=== PATIENT | female | born 2000 | race Caucasian/White ===

== ENCOUNTER → 2023-12-20 | Emergency (ER) | payer OTHER, SELFPAY ==
[~2023-12-20] MED LIST: ALBUTEROL 2.5 MG/3 ML NEB SOL ONE; HYDROCODONE/CHLORPHEN 5 ML/OSYR ONE; IPRATROPIUM BROM 0.5MG/2.5ML ONE; predniSONE 20 MG TAB ONE
--- OUTSIDE RECORDS SUMMARY | 2023-12-20 21:17 | XMS REPORT | Continuity of Care Document ---
Author Name Unknown Address [address] [facility] [place] [address] [facility] Address [address] [facility] [address] [place] [address] Care Team Providers Care Process Safety Engineer Name Role Phone Chato Al Primary Care Physician [phone] [email or web address]_S Attending Clinician UnavailDARCY Lieberman Attending Clinician Unavail able Visit, Chana Nurse Attending Clinician Unava Darcy Eden Attending Clinician + Lucas Kohli Attending Clinician + [phone] LUCAS RODRIGUEZ Attending Clinician Unavailab le Doctor Unassigned, Lupton Attending Clinician U Emily Anderson Attending Clinician [phone] EMILY TURNER Attending Clinician Unavailnitza e Nurse, Juarez Villatoro Exp Cprit Obgyn Attending Clini marcella Unavailable David GARCIA, Shannan Attending Clinician [phone] Ivon Lilly MD Attending Clinician [phone] Jaun Bernal MD Attending Clinician [phone] Lab, Chana Attending Clinician Unavailable Ultrasound, Adc Mfm Attending Clinician UnavailYogesh Moffett MD Attending Clinician + [phone] Bradshaw PAC, Chi S Attending Clinician [phone] [facility]W Attending Clinician Unavailable [email or web address]_S Admitting Clinician UnavailShannan Leigh MD Admitting Clinician [phone] Payers Payer Name Policy Type Policy Number Effective Date Expirati on Date Source [facility] [id number] 2021 00:00:00 MEDICAID PENDING PENDING 2021 00:00:00 [employer] [place] - OUT OF STATE [id number] 2014 00:00:00 Problems Condition Name Condition Details Condition Category Status Onset Date Resolution Date Last Treatment Date Treating Clinician Comments Source Encounter for surveillan ce of injectable contracept jack Encounter for surveillan ce of injectable contracept jack Disease Active 2020-11 00:00: 00 [facility] Elevated BP without diagnosis of hypertensi on Elevated BP without diagnosis of hypertensi on Disease Active 2020-11 00:00: 00 [facility] Rubella non-immune status, antepartum Rubella non-immune status, antepartum Disease Active 05-17 00:00: 00 Overview: Formattin g of this note might be different from the original. Address General acute hospital Susceptibl e to varicella (non-immun e), currently Susceptibl e to varicella (non-immun e), currently Disease Active 05-17 00:00: 00 Overview: Formattin g of this note might be different from the original. Address General acute hospital Marijuana use Marijuana use Disease Active 05-16 00:00: 00 Overview: Formattin g of this note might be different from the original. In [facility] Allergies, Adverse Reactions, Alerts Allergy Name Allergy Type Status Severity Reaction(s) Onset Date Inactive Date Treating Clinician Comments Source NO KNOWN ALLERGIE S Drug Class Active [facility] Social History Social Habit Start Date Stop Date Quantity Comments Source Exposure to SARS-CoV-2 (event) 2022-08-19 00:00:00 2022-08-29 13:06:00 Not sure [facility] Tobacco use and exposure 2022-08-29 00:00:00 2022-08-29 00:00:00 Smokeless tobacco non-user [facility] Alcohol intake 2022-08-29 00:00:00 2022-08-29 00:00:00 Ex-drinker (finding) [facility] Sex Assigned At 2002 00:00:00 2000 00:00:00 [facility] Smoking Status Start Date Stop Date Source Never smoked tobacco [facility] Medications Ordered Medication Name Filled Medication Name Start Date Stop Date Current Medication? Ordering Clinician Indication Dosage Frequency Signature (SIG) Comments Components Source medroxyPROG ESTERone (DEPO-PROVE RA) syringe 150 mg 08-29 19:00: 00 08-29 18:18 :00 No [id number] 150mg [facility] medroxyPROG ESTERone (DEPO-PROVE RA) syringe 150 mg 08-29 19:00: 00 08-29 18:18 :00 No [id number] 150mg 150 mg, Intramuscu lar, ONCE, 1 dose, On Thu08/29/22 at 1400, Routine [facility] medroxyPROG ESTERone (DEPO-PROVE RA) injection 150 mg 06-06 19:45: 00 06-06 18:34 :00 No [id number] 150mg [facility] medroxyPROG ESTERone (DEPO-PROVE RA) injection 150 mg 2021-06-06 19:45: 00 06-06 18:34 :00 No [id number] 150mg 150 mg, Intramuscu lar, ONCE, 1 dose, On Thu06/06/22 at 1445, Routine [facility] medroxyPROG ESTERone (DEPO-PROVE RA) injection 150 mg 2021-- 20:00: 00 03-14 18:48 :00 No [id number] 150mg [facility]iver [facility] medroxyPROG ESTERone (DEPO-PROVE RA) injection 150 mg 2021--15 20:00: 00 03-14 18:48 :00 No [id number] 150mg 150 mg, Intramuscu lar, ONCE, 1 dose, On Thu03/14/22 at 1500, Routine [facility] medroxyPROG ESTERone (DEPO-PROVE RA) injection 150 mg 12-20 19:21: 00 12-20 19:22 :00 No [id number] 150mg Univer [facility] medroxyPROG ESTERone (DEPO-PROVE RA) injection 150 mg 12-20 19:21: 00 12-20 19:22 :00 No [id number] 150mg 150 mg, Intramuscu lar, ONCE, 1 dose, On Thu12/20/21 at 1330, Routine [facility] [id number]-[id number] fum-folic () 27 mg iron- 1 mg Tab 2020-11 00:00: 00 Yes [id number] 1{tbl} Take 1 tablet by mouth daily. [facility] fej871-bkrn fum-folic () 27 mg iron- 1 mg Tab 2020-11 0 00:00: 00 Yes [id number] 1{tbl} Take 1 tablet by mouth daily. [facility] [id number]-epgg fum-folic () 27 mg iron- 1 mg Tab 2020-11 00:00: 00 Yes [id number] 1{tbl} Take 1 tablet by mouth daily. [facility] gfr145-zhbh fum-folic () 27 mg iron- 1 mg Tab 2020-11 0 00:00: 00 Yes [id number] 1{tbl} Take 1 tablet by mouth daily. [facility] wol589-ovva fum-folic () 27 mg iron- 1 mg Tab 2020-11 0 00:00: 00 Yes [id number] 1{tbl} Take 1 tablet by mouth daily. [facility] onw622-snuo fum-folic () 27 mg iron- 1 mg Tab 2020-11 0 00:00: 00 Yes [id number] 1{tbl} Take 1 tablet by mouth daily. [facility] docusate calcium 240 mg capsule 2020-11 00:00: 00 10-31 00:00 :00 No [id number] 240mg Take 1 capsule by mouth once daily as needed for Constipati on. [facility] ferrous sulfate 325 mg (65 mg iron) tablet 2020-11 00:00: 00 10-31 00:00 :00 No [id number] 325mg Take 1 tablet by mouth 2 (two) times daily. [facility] ibuprofen 600 mg tablet 2020-11 00:00: 00 10-31 00:00 :00 No [id number] 600mg Take 1 tablet by mouth every 6 (six) hours as needed (Pain). Take with food or milk. [facility] ibuprofen 600 mg tablet 2020-11 00:00: 00 10-31 00:00 :00 No [id number] 600mg Take 1 tablet by mouth every 6 (six) hours as needed (Pain). Take with food or milk. [facility] PNV 67-iron ps-folate no.1-dha (VITAFOL ULTRA) 29 mg iron- 1 mg-200 mg Cap 06-20 00:00: 00 10-31 00:00 :00 No [id number] 09 1{each} Take 1 Each by mouth daily. [facility] Vital Signs Vital Name Observation Time Observation Value Comments S mary Systolic blood pressure 2022-08-29 18:17:00 134 mm[Hg] [facility] Diastolic blood pressure 2022-08-29 18:17:00 78 mm[Hg] [facility] Heart rate 2022-08-29 18:17:00 81 /min [facility] Body temperature 2022-08-29 18:17:00 37 Mila [facility] Body weight 2022-08-29 18:17:00 78.926 kg [facility] Systolic blood pressure 2022-06-06 18:17:00 111 mm[Hg] [facility] Diastolic blood pressure 2022-06-06 18:17:00 76 mm[Hg] [facility] Heart rate 2022-06-06 18:17:00 79 /min Unive [facility] Body temperature 2022-06-06 18:16:00 36.44 Mila [facility] Respiratory rate 2022-06-06 18:16:00 16 /min [facility] Body height 2022-06-06 18:16:00 170.2 cm [facility] Body weight 2022-06-06 18:16:00 78.699 kg [facility] BMI 2022-06-06 18:16:00 27.17 kg/m2 [facility] Body mass index (BMI) [Percentile] Per age and sex 2022-06-06 18:16:00 87.70 % [facility] Systolic blood pressure 2022-03-14 18:16:00 140 mm[Hg] [facility] Diastolic blood pressure 2022-03-14 18:16:00 88 mm[Hg] [facility] Heart rate 2022-03-14 18:16:00 88 /min Unive [facility] Body temperature 2022-03-14 18:16:00 37.39 Mila [facility] Respiratory rate 2022-03-14 18:16:00 16 /min [facility] Body height 2022-03-14 18:16:00 170.2 cm [facility] Body weight 2022-03-14 18:16:00 78.654 kg [facility] BMI 2022-03-14 18:16:00 27.16 kg/m2 [facility] Body mass index (BMI) [Percentile] Per age and sex 2022-03-14 18:16:00 87.97 % [facility] Systolic blood pressure 2021-12-20 19:12:00 130 mm[Hg] [facility] Diastolic blood pressure 2021-12-20 19:12:00 80 mm[Hg] [facility] Heart rate 2021-12-20 19:12:00 81 /min Unive [facility] Body temperature 2021-12-20 19:12:00 36.28 Mila [facility] Respiratory rate 2021-12-20 19:10:00 18 /min [facility] Body weight 2021-12-20 19:10:00 78.699 kg [facility] Systolic blood pressure 2021-10-31 21:57:00 122 mm[Hg] [facility] Diastolic blood pressure 2021-10-31 21:57:00 92 mm[Hg] [facility] Heart rate 2021-10-31 21:56:00 93 /min [facility] Body temperature 2021-10-31 21:56:00 36.83 Mila [facility] Respiratory rate 2021-10-31 21:56:00 16 /min [facility] Body height 2021-10-31 21:56:00 170.2 cm [facility] Body weight 2021-10-31 21:56:00 74.889 kg [facility] BMI 2021-10-31 21:56:00 25.86 kg/m2 [facility] Body mass index (BMI) [Percentile] Per age and sex 2021-10-31 21:56:00 84.00 % [facility] Procedures Procedure Date / Time Performed Performing Clinicia n Source GARDASIL 9 (HPV 9V) VACCINE 2022-06-06 18:28:04 Lucas Rodriguez [facility] ASSIGNMENT OF BENEFITS 2022-06-06 18:00:17 Docto r Unassigned, Lupton [facility] Encounters Start Date/Time End Date/Time Encounter Type Admission Type Attending Clinicians Care Facility Care Department Encounter ID Source 2021-10-01 08:29:21 Outpatient [facility] [id number] [facility] 2023-09-26 00:00:00 2023-09-26 00:00:00 Outpatient GC_GCBZW_Ka diyala_S PRIV PRIV [id number] [facility] 2023-09-25 00:00:00 2023-09-25 00:00:00 Outpatient GC_GCBZW_Ka diyala_S PRIV PRIV [id number] [facility] 2022-11-21 13:00:2022-11-21 13:00:00 Outpatient DARCY QUILES [facility] [id number] [facility] 2022-08-29 13:00:00 2022-08-29 13:18:31 Nurse Visit Visit, Darcy Mendoza [facility] 1.840.114 350.1.13.10 4.2.7.2.686 [id number] [facility] 2022-08-29 13:00:00 2022-08-29 13:00:00 Outpatient DARCY QUILES [facility] [id number] [facility] 2022-06-06 13:00:00 2022-06-06 13:26:17 Nurse Visit Visit, BrendenLucas Zambrano [facility] 1.840.114 350.1.13.10 4.2.7.2.686 [id number] [facility] 2022-06-06 13:00:00 2022-06-06 13:00:00 Outpatient LUCAS MODI [facility] [id number] [facility] 2022-06-06 00:00:00 2022-06-06 00:00:00 Orders Only Doctor Unassigned, Lupton [facility] .840.114 350.1.13.10 4.2.7.2.686 [id number] [facility] 2022-03-14 13:00:00 2022-03-14 13:39:37 [facility] 1..840.114 350.1.13.10 4.2.7.2.686 [id number] 107 [id number] [facility] 2022-03-14 13:00:00 2022-03-14 13:00:00 Outpatient R LUCAS RODRIGUEZ [facility] [id number] [facility] 2021-12-20 13:00:00 2021-12-20 13:21:35 Nurse Visit Visit, Chana Dalton Lucas Rodriguez [facility] .840.114 350.1.13.10 4.2.7.2.686 [id number] [facility] 2021-12-20 13:00:00 2021-12-20 13:00:00 Outpatient R LUCAS RODRIGUEZ [facility] [id number] [facility] 2021-12-12 14:30:00 2021-12-12 14:30:00 Outpatient R [facility] [id number] [facility] 2021-12-12 14:30:00 2021-12-12 14:30:00 Outpatient R LUCAS RODRIGUEZ [facility] [id number] [facility] 2021-10-31 15:35:21 2021-10-31 16:23:36 Office Visit Emily Turner [facility] .840.114 350.1.13.10 4.2.7.2.686 [id number] [facility] 2021-10-31 15:30:00 2021-10-31 16:23:36 Outpatient R EMILY TURNER [facility] [id number] [facility] 2021-10-31 16:05:35 2021-10-31 16:06:00 Nurse Visit Nurse, Juarez Villatoro Exp Cprit Obgyn Emily Turner [facility] ..840.114 350.1.13.10 4.2.7.2.686 [id number] 107 [id number] [facility] 2021-10-10 12:47:20 2021-10-10 13:22:28 Routine Visit Emily Turner [facility] 1..114 350.1.13.10 4.2.7.2.686 [id number] [facility] 2021-10-10 12:45:00 2021-10-10 13:22:28 Outpatient R EMILY TURNER [facility] [id number] [facility] 2021-10-10 12:45:00 2021-10-10 13:22:28 Outpatient R EMILY TURNER [facility] [id number] [facility] 2021-09-19 08:13:00 2021-09-21 16:46:00 Hospital Encounter Shannan Hernandez [facility] 1..114 350.1.13.10 4.2.7.2.686 [id number] [facility] 2021-09-19 14:36:00 2021-09-19 23:22:00 Anesthesia Event Ivon Lilly Michael J [facility] 1..114 350.1.13.10 4.2.7.2.686 [id number] [facility] 2021-09-17 15:40:48 2021-09-17 16:03:53 Routine Visit Emily Turner [facility] 1.84.114 350.1.13.10 4.2.7.2.686 [id number] 107 [id number] [facility] 2021-09-17 15:45:00 2021-09-17 15:45:00 Outpatient R EMILY TURNER [facility] [id number] [facility] 2021-09-11 13:58:53 2021-09-11 14:30:09 Routine Visit Emily Turner [facility] 1.84.114 350.1.13.10 4.2.7.2.686 [id number] 107 [id number] [facility] 2021-09-11 14:15:00 2021-09-11 14:15:00 Outpatient R EMILY TURNER [facility] [id number] [facility] 2021-09-05 13:24:57 2021-09-05 13:55:40 Routine Visit Emily Turner [facility] .2.840.114 350.1.13.10 4.2.7.2.686 [id number] [facility] 2021-09-05 13:30:00 2021-09-05 13:30:00 Outpatient R EMILY TURNER [facility] [id number] [facility] 2021-08-29 13:20:54 2021-08-29 13:51:43 Routine Visit Emily Turner [facility] .2.840.114 350.1.13.10 4.2.7.2.686 [id number] [facility] 2021-08-29 13:30:00 2021-08-29 13:30:00 Outpatient R EMILY TURNER [facility] [id number] [facility] 2021-08-21 12:47:20 2021-08-21 15:07:20 Routine Visit Darcy Arnold [facility] .2.840.114 350.1.13.10 4.2.7.2.686 [id number] [facility] 2021-08-21 12:45:00 2021-08-21 12:45:00 Outpatient R DARCY ARNOLD [facility] [id number] [facility] 2021-08-07 12:58:15 2021-08-07 13:23:46 Routine Visit Darcy Arnold [facility] 1..840.114 350.1.13.10 4.2.7.2.686 [id number] [facility] 2021-08-07 13:00:00 2021-08-07 13:00:00 Outpatient R DARCY ARNOLD [facility] [id number] [facility] 2021-07-24 14:26:06 2021-07-24 14:41:06 Routine Visit EsdrasDarcy aquino Kristen [facility] 1..840.114 350.1.13.10 4.2.7.2.686 [id number] [facility] 2021-07-24 14:30:00 2021-07-24 14:30:00 Outpatient R DARCY ARNOLD [facility] [id number] [facility] 2021-07-16 12:46:03 2021-07-16 12:52:30 Singeing Torch Operator Visit Lab, Ang-Rmchp Darcy Arnold rKisten [facility] 1..840.114 350.1.13.10 4.2.7.2.686 [id number] [facility] 2021-07-16 12:45:00 2021-07-16 12:45:00 Outpatient R [facility] [id number] [facility] 2021-07-11 10:51:54 2021-07-11 11:36:54 Singeing Torch Operator Visit Ultrasound, Yogesh Patrick [facility] 1..840.114 350.1.13.10 4.2.7.2.686 [id number] [facility] 2021-07-11 11:00:00 2021-07-11 11:00:00 Outpatient P [facility] [id number] [facility] 2021-07-10 13:56:09 2021-07-10 15:27:15 Routine Visit Darcy Arnold [facility] 1.2840.114 350.1.13.10 4.2.7.2.686 [id number] [facility] 2021-07-10 14:00:00 2021-07-10 14:00:00 Outpatient R DARCY ARNOLD [facility] [id number] [facility] 2021-06-21 00:00:00 2021-06-21 00:00:00 Abstract Darcy Arnold [facility] 1.2840.114 350.1.13.10 4.2.7.2.686 [id number] [facility] 2021-06-20 13:54:40 2021-06-20 15:20:43 Singeing Torch Operator Visit Ultrasound, [facility] Yogesh Farmer [facility] 1.0.114 350.1.13.10 4.2.7.2.686 [id number] [facility] 2021-06-20 14:00:00 2021-06-20 14:00:00 Outpatient R [facility] [id number] [facility] 2021-06-20 00:00:00 2021-06-20 00:00:00 Telephone Darcy Arnold [facility] 1.20.114 350.1.13.10 4.2.7.2.686 [id number] 107 [id number] [facility] 2021-06-19 00:00:00 2021-06-19 00:00:00 Telephone Darcy Arnold [facility] 1.2840.114 350.1.13.10 4.2.7.2.686 [id number] [facility] 2021-06-14 00:00:00 2021-06-14 00:00:00 Telephone Darcy Arnold Kristen [facility] 1.2.840.114 350.1.13.10 4.2.7.2.686 [id number] [facility] 2021-06-14 00:00:00 2021-06-14 00:00:00 Telephone Darcy Arnold Kristen [facility] 1..840.114 350.1.13.10 4.2.7.2.686 [id number] [facility] 2021-06-12 13:12:41 2021-06-12 14:09:23 Routine Visit Darcy Arnold [facility] 1.840.114 350.1.13.10 4.2.7.2.686 [id number] [facility] 2021-06-12 13:00:00 2021-06-12 13:00:00 Outpatient R DARCY ARNOLD [facility] [id number] [facility] 2021-05-16 14:42:37 2021-05-16 15:50:31 Initial Visit Darcy Arnold [facility] 1..840.114 350.1.13.10 4.2.7.2.686 [id number] [facility] 2021-05-16 14:00:00 2021-05-16 14:00:00 Outpatient R DARCY ARNOLD [facility] [id number] [facility] 2021-05-16 00:00:00 2021-05-16 00:00:00 Orders Only Doctor Unassigned, Lupton [facility] 1..840.114 350.1.13.10 4.2.7.2.686 [id number] [facility] 2021-03-08 09:30:00 2021-03-08 09:30:00 Outpatient R [facility] [id number] [facility] 2020-02-14 18:19:04 2020-02-14 21:20:00 Emergency Chi Bradshaw S [facility] 1.2.840.114 350.1.13.10 4.2.7.2.686 [id number] [facility] 2020-02-14 18:19:04 2020-02-14 18:19:04 Emergency X [facility] ERT [id number] [facility]
--- NOTE | 2023-12-20 23:34 | ER ---
Nurse's Notes [facility] Name: Katia Shi Age: 23 yrs Sex: Female : 2000 Arrival Date: 12/20/2023 Time: 21:13 Bed 12 Private MD: Diagnosis: Acute bronchitis, unspecified Presentation: 12/20 21:39 Chief complaint: Patient states: Cough, congestion, chills, body aches and sore throat cm10 onset this morning. Pt reports not taking any medicine for symptoms. Coronavirus screen: Vaccine status: Patient reports being unvaccinated. Client denies travel out of the [place] in the last 14 days. Ebola Screen: Patient denies travel to an Ebola-affected area in the 21 days before illness onset. No symptoms or risks identified at this time. Initial Sepsis Screen: Does the patient meet any 2 criteria? HR > 90 bpm. No. Patient's initial sepsis screen is negative. Does the patient have a suspected source of infection? No. Patient's initial sepsis screen is negative. Risk Assessment: Do you want to hurt yourself or someone else? Patient reports no desire to harm self or others. Onset of symptoms was December 20, 2023. 21:39 Method Of Arrival: Ambulatory cm10 21:39 Acuity: JAMES 4 cm10 Triage Assessment: 22:26 General: Appears in no apparent distress. Behavior is calm, cooperative. Pain: Denies tl4 pain. EENT: No signs and/or symptoms were reported regarding the EENT system. Neuro: No deficits noted. Cardiovascular: No deficits noted. Denies chest pain, lightheadedness, palpitations. Respiratory: Reports cough that is Breath sounds with wheezes. GI: No signs and/or symptoms were reported involving the gastrointestinal system. : No signs and/or symptoms were reported regarding the genitourinary system. 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 - Social history:: Smoking status: Reported history of juuling and/or vaping. Screenin:29 [facility] ED Fall Risk Assessment (Adult) History of falling in the last 3 months, tl4 including since admission No falls in past 3 months (0 pts) Confusion or Disorientation No (0 pts) Intoxicated or Sedated No (0 pts) Impaired Gait No (0 pts) Mobility Assist Device Used No (0 pt) Altered Elimination No (0 pt) Score/Fall Risk Level 0 - 2 = Low Risk Oriented to surroundings, Maintained a safe environment, Educated pt \T\ family on fall prevention, incl call for assistance when getting out of bed, Assessed \T\ reinforced patient's understanding of fall precautions, Provided non-skid footwear. Abuse screen: Denies threats or abuse. Denies injuries from another. Nutritional screening: No deficits noted. Tuberculosis screening: No symptoms or risk factors identified. Assessment: 22:27 Reassessment: No changes from previously documented assessment. Patient and/or family tl4 updated on plan of care and expected duration. Pain level reassessed. Patient is alert, oriented x 3, equal unlabored respirations, skin warm/dry/pink. Patient states feeling better. Pain: Denies pain. Cardiovascular: Capillary refill < 3 seconds Patient's skin is warm and dry. Respiratory: Airway is patent Respiratory effort is even, unlabored, Respiratory pattern is regular, Breath sounds with wheezes bilaterally. Vital Signs: 21:39 BP 138 / 93; Pulse 102; Resp 18; Temp 98; Pulse Ox 96% on R/A; Weight 81.65 kg; Height cm10 5 ft. 6 in. ; Pain 5/10; 23:41 BP 119 / 82; Pulse 87; Resp 16; Temp 98.1(O); Pulse Ox 99% on R/A; tl4 21:39 Body Mass Index 29.05 (81.65 kg, 167.64 cm) cm10 21:39 Pain Scale: Adult cm10 ED Course: 21:19 Patient arrived in ED. gm2 21:21 Rochelle Luz FNP-C is [facility]. kb 21:21 Gabino Lozoya DO is Attending Physician. kb 21:41 Triage completed. cm10 21:41 Arm band placed on Patient placed in an exam room, on a stretcher. cm10 21:41 SARS-COV-2 RT PCR Sent. cm10 21:41 Flu Sent. cm10 22:29 Patient has correct armband on for positive identification. Bed in low position. Call tl4 light in reach. Side rails up X 1. Provided Education on: ED process. Client placed on continuous cardiac and pulse oximetry monitoring. NIBP monitoring applied. Door closed. Noise minimized. Lights dimmed. Moved to private room. Warm blanket given. 22:30 No provider procedures requiring assistance completed. Patient did not have IV access tl4 during this emergency room visit. 23:16 Chest Single View XRAY In Process Unspecified. EDMS Administered Medications: 21:48 Drug: predniSONE PO 40 mg PO once Route: PO; cm10 21:54 Follow up: Response: No adverse reaction tl4 21:52 Drug: Albuterol Inhalation 2.5 mg Inhalation once Route: Inhalation; tl4 22:12 Follow up: Response: No adverse reaction tl4 21:52 Drug: Ipratropium Inhalation Aerosol 0.5 mg Inhalation once Route: Inhalation; tl4 22:12 Follow up: Response: No adverse reaction tl4 23:39 Drug: Tussionex Pennkinetic ER PO Suspension 5 ml PO once Route: PO; tl4 23:41 Follow up: Response: Medication administered at discharge. tl4 Medication: 22:28 VIS not applicable for this client. tl4 Outcome: 23:33 Discharge ordered by MD. brown 23:42 Discharged to home ambulatory, with family, tl4 23:42 Condition: stable 23:42 Discharge instructions given to patient, Instructed on discharge instructions, follow up and referral plans. medication usage, Demonstrated understanding of instructions, follow-up care, medications, 23:43 Patient left the ED. tl4 Signatures: Dispatcher [employer] EDMS Rochelle Luz FNP-C FNP-Ckb Martinez, Clarissa, RN RN cm10 Poly Smith [address] [place] tl4
--- NOTE | 2023-12-20 23:34 | EDPHYS ---
Physician Documentation [facility] Name: Katia Shi Age: 23 yrs Sex: Female : 2000 Arrival Date: 12/20/2023 Time: 21:13 Bed 12 Private MD: ED Physician Gabino Lozoya HPI: 12/20 22:58 This 23 yrs old Female presents to ER via Ambulatory with complaints of Fever, Cough, kb Congestion. 22:58 Pt is a 23 year old female who presents with cough, congestion, chills, bodyaches, kb malaise that started this morning. Reports slight sore throat from coughing. Unknown fever. . 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 - Social history:: Smoking status: Reported history of juuling and/or vaping. ROS: 22:58 Abdomen/GI: Negative for abdominal pain, nausea, vomiting, diarrhea, and constipation, kb 22:58 Constitutional: Positive for body aches, chills, fatigue, malaise, 22:58 ENT: Positive for rhinorrhea, sinus congestion, sore throat, 22:58 Respiratory: Positive for cough, 22:58 All other systems are negative, Exam: 22:58 Constitutional: This is a well developed, well nourished patient who is awake, alert, kb and in no acute distress. Head/Face: Normocephalic, atraumatic. ENT: Moist Mucous membranes Cardiovascular: Regular rate Abdomen/GI: Soft, non-tender. No distention Skin: Warm, dry with normal turgor. Normal color. MS/ Extremity: Pulses equal, no cyanosis. Neurovascular intact. Full, normal range of motion. Neuro: Awake and alert, GCS 15, oriented to person, place, time, and situation. Moves all extremities. Normal gait. 22:58 Respiratory: the patient does not display signs of respiratory distress, Respirations: normal, Breath sounds: wheezing: expiratory that is mild, is scattered, Vital Signs: 21:39 BP 138 / 93; Pulse 102; Resp 18; Temp 98; Pulse Ox 96% on R/A; Weight 81.65 kg; Height cm10 5 ft. 6 in. ; Pain 5/10; 23:41 BP 119 / 82; Pulse 87; Resp 16; Temp 98.1(O); Pulse Ox 99% on R/A; tl4 21:39 Body Mass Index 29.05 (81.65 kg, 167.64 cm) cm10 21:39 Pain Scale: Adult cm10 MDM: 21:21 Patient medically screened. kb 22:58 Data reviewed: vital signs, nurses notes. kb 23:00 Differential diagnosis: flu, covid, uri, pneumonia. kb 23:33 I considered the following discharge prescriptions or medication management in the emergency department I discussed and recommended Over The Counter medications, Antibiotics: At this time antibiotics are not recommended, Antivirals: At this time, antivirals are not recommended. Counseling: I had a detailed discussion with the patient and/or guardian regarding the historical points, exam findings, and any diagnostic results supporting the discharge/admit diagnosis, lab results, radiology results, the need for outpatient follow up, a family practitioner, to return to the emergency department if symptoms worsen or persist or if there are any questions or concerns that arise at home. 12/20 21:22 Order name: Flu; Complete Time: 22:12 kb 12/20 21:22 Order name: SARS-COV-2 RT PCR; Complete Time: 22:29 kb 12/20 21:31 Order name: Chest Single View XRAY Administered Medications: 21:48 Drug: predniSONE PO 40 mg PO once Route: PO; cm10 21:54 Follow up: Response: No adverse reaction tl4 21:52 Drug: Albuterol Inhalation 2.5 mg Inhalation once Route: Inhalation; tl4 22:12 Follow up: Response: No adverse reaction tl4 21:52 Drug: Ipratropium Inhalation Aerosol 0.5 mg Inhalation once Route: Inhalation; tl4 22:12 Follow up: Response: No adverse reaction tl4 23:39 Drug: Tussionex Pennkinetic ER PO Suspension 5 ml PO once Route: PO; tl4 23:41 Follow up: Response: Medication administered at discharge. tl4 Disposition: 23:36 I was immediately available on-site in the Emergency Department for consultation in the ky3 care of the patient. Disposition Summary: 12/20/23 23:33 Discharge Ordered Notes: Location: Home kb Condition: Stable kb Diagnosis - Acute bronchitis, unspecified kb Followup: kb - With: Private Physician - When: 2 - 3 days - Reason: Recheck today's complaints, Continuance of care, Re-evaluation by your physician Followup: kb - With: Emergency Department - When: As needed - Reason: Worsening of condition Discharge Instructions: - Discharge Summary Sheet kb - Acute Bronchitis, Adult, [id number] kb Forms: - Medication Reconciliation Form kb - Thank You Letter kb - Antibiotic Education kb - Prescription Opioid Use kb - Patient Portal Instructions kb - Leadership Thank You Letter kb Prescriptions: - albuterol sulfate 90 mcg/actuation Inhalation HFA Aerosol Inhaler - inhale 2 inhalation INHALATION route every 4-8 hours As needed; 1 unit; kb Refills: 0, Product Selection Permitted - Prednisone 20 mg Oral Tablet - take 1 tablet ORAL route once daily for 5 days; 5 tablet; Refills: 0, Product kb Selection Permitted Signatures: Dispatcher [employer] EDRochelle Skinner, SRAVAN-C SRAVAN-Gabino Villavicencio DO DO ms3 Aura Fernandez, RN RN cm10 [facility], [place] [facility]
[2023-12-21 01:11] VITALS: BP 119/82; TEMP 98.1; O2SAT 99
--- NOTE | 2023-12-21 12:25 | RAD REPORT ---
EXAM DESCRIPTION: Chest Single View CLINICAL HISTORY: Congestion;Cough COMPARISON: None TECHNIQUE: Single AP view of the chest. FINDINGS: Lung volumes adequate. Cardiac silhouette is normal in size. No pneumothorax. No large pleural effusion. No focal consolidation. No acute bony finding. IMPRESSION: No evidence of acute cardiopulmonary disease. 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 The interpreting r adiologist is fully responsible for the content of the report.
== END ==
LOC: ER 21:13
DX: J20.9 Acute bronchitis, unspecified (principal); Z11.52 Encounter for screening for COVID-19
CPT/HCPCS: 87635; 87804 ×2; 71045; 99284; J7512; J7613; J7644

== ENCOUNTER 2025-03-08 12:58 | Emergency (ER) | payer OTHER, SELFPAY ==
--- OUTSIDE RECORDS SUMMARY | 2025-03-08 13:03 | XMS REPORT | Continuity of Care Document ---
Author Name Unknown Address [address] [facility] [place] [address] [facility] Address [address] [facility] [address] [place] [address] Care Team Providers Care Sugar Refiner Name Role Phone Chato Al Umesh Primary Care Physician [phone] GILBERTO GOULD Attending Clinician Unavailable DARCY ARNOLD Attending Clinician Unavail able Darcy Davis Attending Clinician + LAUREEN QUINN Attending Clinician Unavaila MARLEE Alcantara Attending Clinician Unavailable MARLEE DURHAM Attending Clinician Unavailable Laureen Quinn CNM Attending Clinician [phone] [email or web address] Attending Clinician Unavaila ble Chana Acosta Nurse Attending Clinician Unava ilable Darcy Davis Attending Clinician + Lucas Kohli Attending Clinician + [phone] LUCAS RODRIGUEZ Attending Clinician Unavailab le Doctor Unassigned, [place] Attending Clinician U Emily Anderson Attending Clinician [phone] EMILY TURNER Attending Clinician Unavailabl e Nurse, Ang Rmchp Exp Cprit Obgyn Attending Clini marcella Unavailable David GARCIA, Shannan Attending Clinician [phone] Ivon Lilly MD Attending Clinician [phone] Jaun Bernal MD Attending Clinician [phone] Bh[facility]av [facility] Attending Clinician Unavailable Ultrasound, Adc Mfm Attending Clinician Unavailumesh Farmer MD, Yogesh Hastings Attending Clinician + [phone] Chi Steiner Attending Clinician [phone] [facility] BRADSHAW Attending Clinician Unavailable [email or web address] Admitting Clinician Unavailumesh Hernandez MD, Shannan Admitting Clinician [phone] Payers Payer Name Policy Type Policy Number Effective Date Expirati on Date Source [facility] [id number] 2021 00:00:00 [place] [id number] 2025 00:00:00 MEDICAID PENDING PENDING 2025 00:00:00 BC[facility] - OUT OF STATE [id number] 2014 00:00:00 Problems Condition Name Condition Details Condition Category Status Onset Date Resolution Date Last Treatment Date Treating Clinician Comments Source Obesity in Obesity in Disease Active 3-05 00:00: 00 [facility] Supervisio n of high-risk Supervisio n of high-risk Disease Active 01-18 00:00: 00 [facility] Marijuana use during Marijuana use during Disease Active 01-18 00:00: 00 [facility] Multiparit y Multiparit y Disease Active 01-18 00:00: 00 [facility] Rubella non-immune status, antepartum Rubella non-immune status, antepartum Disease Active 05-17 00:00: 00 Overview: Formattin g of this note might be different from the original. Address pp [facility] Susceptibl e to varicella (non-immun e), currently Susceptibl e to varicella (non-immun e), currently Disease Active 2021-0 6-18 00:00: 00 Overview: Formattin g of this note might be different from the original. Address pp [facility] Marijuana use Marijuana use Disease Active 617 00:00: 00 Overview: Formattin g of this note might be different from the original. In [facility] Elevated BP without diagnosis of hypertensi on Elevated BP without diagnosis of hypertensi on Disease Resolve d 2020-11 0-13 00:00: 00 2025-02-16 00:00:00 2025-02-16 12:07:20 [facility] Encounter for surveillan ce of injectable contracept jack Encounter for surveillan ce of injectable contracept jack Disease Resolve d 2020-11 2-02 00:00: 00 2025-01-18 00:00:00 2025-01-18 13:49:05 [facility] (normal spontaneou s vaginal delivery) (normal spontaneou s vaginal delivery) Disease Resolve d 2020-11 0-22 00:00: 00 2021-10-10 00:00:00 2021-10-10 12:49:19 [facility] Single live Single live Disease Resolve d 2020-11 0-22 00:00: 00 2021-10-10 00:00:00 2021-10-10 12:49:21 [facility] Encounter for induction of labor Encounter for induction of labor Disease Resolve d 2020-11 0-21 00:00: 00 2021-10-10 00:00:00 2021-10-10 12:49:18 [facility] Supervisio n of high-risk with insufficie nt care Supervisio n of high-risk with insufficie nt care Disease Resolve d 6-17 00:00: 00 2021-10-10 00:00:00 2021-10-10 12:49:12 [facility] Allergies, Adverse Reactions, Alerts Allergy Name Allergy Type Status Severity Reaction(s) Onset Date Inactive Date Treating Clinician Comments Source NO KNOWN ALLERGIE S Drug Class Active [facility] Social History Social Habit Start Date Stop Date Quantity Comments Source ASSERTION 2024-07-10 00:00:00 [facility] Alcoholic beverage intake 2025-02-15 00:00:00 2025-02-15 00:00:00 Ex-drinker (finding) [facility] History of Social function 2025-02-15 00:00:00 2025-02-15 00:00:00 [facility] Exposure to SARS-CoV-2 (event) 2022-08-19 00:00:00 2022-08-29 13:06:00 Not sure [facility] Tobacco use and exposure 2022-08-29 00:00:00 2022-08-29 00:00:00 Smokeless tobacco non-user [facility] Alcohol intake 2022-08-29 00:00:00 2022-08-29 00:00:00 Ex-drinker (finding) [facility] Sex assigned at 2002 00:00:00 2000 00:00:00 [facility] Smoking Status Start Date Stop Date Source Never smoked tobacco [facility] Medications Ordered Medication Name Filled Medication Name Start Date Stop Date Current Medication? Ordering Clinician Indication Dosage Frequency Signature (SIG) Comments Components Source PNV 67-iron ps-folate no.1-dha (VITAFOL ULTRA) 29 mg iron- 1 mg-200 mg Cap 3-05 00:00: 00 Yes [id number] 1{each} Take 1 Each by mouth in the morning. [facility] medroxyPROG ESTERone (DEPO-PROVE RA) syringe 150 mg -30 19:00: 00 08-29 18:18 :00 No [id number] [facility] EST[facility] (DEPO-PROVE RA) injection 150 mg -08 19:45: 00 06-06 18:34 :00 No [id number] 150mg Univer [facility] medroxyPROG ESTERone (DEPO-PROVE RA) injection 150 mg 4-15 20:00: 00 03-14 18:48 :00 No [id number] 150mg [facility] medroxyPROG ESTERone (DEPO-PROVE RA) injection 150 mg 1- 19:21: 00 12-20 19:22 :00 No [id number] 150mg [facility] [id number] fum-folic () 27 mg iron- 1 mg Tab 2020-11 0- 00:00: 00 Yes [id number] 1{tbl} Take 1 tablet by mouth daily. [facility] [id number] fum-folic () 27 mg iron- 1 mg Tab 2020-11 0 00:00: 00 01-18 00:00 :00 No [id number] 1{tbl} Take 1 tablet by mouth daily. [facility] docusate calcium 240 mg capsule 2020-11 00:00: 00 10-31 00:00 :00 No [id number] 240mg Take 1 capsule by mouth once daily as needed for Constipati on. [facility] ferrous sulfate 325 mg (65 mg iron) tablet 2020-11 00:00: 00 10-31 00:00 :00 No [id number] 325mg Take 1 tablet by mouth 2 (two) times daily. [facility] ibuprofen 600 mg tablet 2020-11 00:00: 00 10-31 00:00 :00 No [id number] 600mg Take 1 tablet by mouth every 6 (six) hours as needed (Pain). Take with food or milk. [facility] ibuprofen 600 mg tablet 2020-11 00:00: 00 10-31 00:00 :00 No [id number] 600mg Take 1 tablet by mouth every 6 (six) hours as needed (Pain). Take with food or milk. [facility] PNV 67-iron ps-folate no.1-dha (VITAFOL ULTRA) 29 mg iron- 1 mg-200 mg Cap - 00:00: 00 10-31 00:00 :00 No [id number] 09 1{each} Take 1 Each by mouth daily. [facility] Immunizations Ordered Immunization Name Filled Immunization Name Date Status Comments Source TDAP 2025-02-15 00:00:00 Completed HPV9 2022-06-06 00:00:00 Completed [facility] HPV9 2022-06-06 00:00:00 Completed [facility] HPV9 2022-06-06 00:00:00 Completed [facility] HPV9 2021-10-31 00:00:00 Completed [facility] HPV9 2021-10-31 00:00:00 Completed [facility] HPV9 2021-10-31 00:00:00 Completed [facility] HPV9 2021-10-31 00:00:00 Completed [facility] HPV9 2021-10-31 00:00:00 Completed [facility] HPV9 2021-10-31 00:00:00 Completed [facility] HPV9 2021-10-31 00:00:00 Completed MMR 2021-09-21 00:00:00 Completed [facility] MMR 2021-09-21 00:00:00 Completed [facility] MMR 2021-09-21 00:00:00 Completed [facility] MMR 2021-09-21 00:00:00 Completed [facility] MMR 2021-09-21 00:00:00 Completed [facility] MMR 2021-09-21 00:00:00 Completed [facility] MMR 2021-09-21 00:00:00 Completed [facility] HPV9 2021-09-20 00:00:00 Completed [facility] HPV9 2021-09-20 00:00:00 Completed [facility] HPV9 2021-09-20 00:00:00 Completed [facility] HPV9 2021-09-20 00:00:00 Completed [facility] HPV9 2021-09-20 00:00:00 Completed [facility] HPV9 2021-09-20 00:00:00 Completed [facility] HPV9 2021-09-20 00:00:00 Completed [facility] Influenza Virus Vaccine Quad IM, Preserv and ABX Free 6 MO-64 YRS 2021-09-05 00:00:00 Completed [facility] Influenza Virus Vaccine Quad IM, Preserv and ABX Free 6 MO-64 YRS 2021-09-05 00:00:00 Completed [facility] Influenza Virus Vaccine Quad IM, Preserv and ABX Free 6 MO-64 YRS 2021-09-05 00:00:00 Completed [facility] Influenza Virus Vaccine Quad IM, Preserv and ABX Free 6 MO-64 YRS 2021-09-05 00:00:00 Completed [facility] Influenza Virus Vaccine Quad IM, Preserv and ABX Free 6 MO-64 YRS 2021-09-05 00:00:00 Completed [facility] Influenza Virus Vaccine Quad IM, Preserv and ABX Free 6 MO-64 YRS 2021-09-05 00:00:00 Completed [facility] Influenza Virus Vaccine Quad IM, Preserv and ABX Free 6 MO-64 YRS (FLUCELVAX) 2021-09-05 00:00:00 Completed [facility] TDAP 2021-07-10 00:00:00 Completed [facility] TDAP 2021-07-10 00:00:00 Completed [facility] TDAP 2021-07-10 00:00:00 Completed [facility] TDAP 2021-07-10 00:00:00 Completed [facility] TDAP 2021-07-10 00:00:00 Completed [facility] TDAP 2021-07-10 00:00:00 Completed [facility] TDAP 2021-07-10 00:00:00 Completed [facility] Vital Signs Vital Name Observation Time Observation Value Comments S ource Systolic blood pressure 2025-03-06 16:31:00 128 mm[Hg] [facility] Diastolic blood pressure 2025-03-06 16:31:00 83 mm[Hg] [facility] Heart rate 2025-03-06 16:31:00 77 /min [facility] Body temperature 2025-03-06 16:31:00 36 Mila [facility] Respiratory rate 2025-03-06 16:31:00 18 /min [facility] Body height 2025-03-06 16:31:00 167.6 cm [facility] Body weight 2025-03-06 16:31:00 93.441 kg [facility] BMI 2025-03-06 16:31:00 33.25 kg/m2 [facility] Systolic blood pressure 2025-03-01 15:51:00 120 mm[Hg] [facility] Diastolic blood pressure 2025-03-01 15:51:00 71 mm[Hg] [facility] Heart rate 2025-03-01 15:51:00 76 /min [facility] Body temperature 2025-03-01 15:51:00 36.17 Mila [facility] Respiratory rate 2025-03-01 15:51:00 18 /min [facility] Body height 2025-03-01 15:51:00 167.6 cm [facility] Body weight 2025-03-01 15:51:00 92.534 kg [facility] BMI 2025-03-01 15:51:00 32.93 kg/m2 [facility] Systolic blood pressure 2025-02-01 18:29:00 123 mm[Hg] [facility] Diastolic blood pressure 2025-02-01 18:29:00 77 mm[Hg] [facility] Heart rate 2025-02-01 18:29:00 91 /min [facility] Body temperature 2025-02-01 18:29:00 36.72 Mila [facility] Body height 2025-02-01 18:29:00 167.6 cm [facility] Body weight 2025-02-01 18:29:00 91.717 kg [facility] BMI 2025-02-01 18:29:00 32.64 kg/m2 [facility] Systolic blood pressure 2025-01-18 18:48:00 126 mm[Hg] [facility] Diastolic blood pressure 2025-01-18 18:48:00 87 mm[Hg] [facility] Heart rate 2025-01-18 18:48:00 85 /min [facility] Body temperature 2025-01-18 18:48:00 36.94 Mila [facility] Respiratory rate 2025-01-18 18:48:00 18 /min [facility] Body height 2025-01-18 18:48:00 170.2 cm [facility] Body weight 2025-01-18 18:48:00 91.371 kg [facility] BMI 2025-01-18 18:48:00 31.55 kg/m2 [facility] Systolic blood pressure 2022-08-29 18:17:00 134 mm[Hg] [facility] Diastolic blood pressure 2022-08-29 18:17:00 78 mm[Hg] [facility] Heart rate 2022-08-29 18:17:00 81 /min [facility] Body temperature 2022-08-29 18:17:00 37 Mila [facility] Body weight 2022-08-29 18:17:00 78.926 kg [facility] Systolic blood pressure 2022-06-06 18:17:00 111 mm[Hg] [facility] Diastolic blood pressure 2022-06-06 18:17:00 76 mm[Hg] [facility] Heart rate 2022-06-06 18:17:00 79 /min [facility] Body temperature 2022-06-06 18:16:00 36.44 Mila [facility] Respiratory rate 2022-06-06 18:16:00 16 /min [facility] Body height 2022-06-06 18:16:00 170.2 cm [facility] Body weight 2022-06-06 18:16:00 78.699 kg [facility] BMI 2022-06-06 18:16:00 27.17 kg/m2 [facility] Body mass index (BMI) [Percentile] Per age and sex 2022-06-06 18:16:00 87.70 % [facility] Systolic blood pressure 2022-03-14 18:16:00 140 mm[Hg] [facility] Diastolic blood pressure 2022-03-14 18:16:00 88 mm[Hg] [facility] Heart rate 2022-03-14 18:16:00 88 /min [facility] Body temperature 2022-03-14 18:16:00 37.39 Mila [facility] Respiratory rate 2022-03-14 18:16:00 16 /min [facility] Body height 2022-03-14 18:16:00 170.2 cm [facility] Body weight 2022-03-14 18:16:00 78.654 kg [facility] BMI 2022-03-14 18:16:00 27.16 kg/m2 [facility] Body mass index (BMI) [Percentile] Per age and sex 2022-03-14 18:16:00 87.97 % [facility] Systolic blood pressure 2021-12-20 19:12:00 130 mm[Hg] [facility] Diastolic blood pressure 2021-12-20 19:12:00 80 mm[Hg] [facility] Heart rate 2021-12-20 19:12:00 81 /min [facility] Body temperature 2021-12-20 19:12:00 36.28 Mila [facility] Respiratory rate 2021-12-20 19:10:00 18 /min [facility] Body weight 2021-12-20 19:10:00 78.699 kg [facility] Systolic blood pressure 2021-10-31 21:57:00 122 mm[Hg] [facility] Diastolic blood pressure 2021-10-31 21:57:00 92 mm[Hg] [facility] Heart rate 2021-10-31 21:56:00 93 /min [facility] Body temperature 2021-10-31 21:56:00 36.83 Mila [facility] Respiratory rate 2021-10-31 21:56:00 16 /min [facility] Body height 2021-10-31 21:56:00 170.2 cm [facility] Body weight 2021-10-31 21:56:00 74.889 kg [facility] BMI 2021-10-31 21:56:00 25.86 kg/m2 [facility] Body mass index (BMI) [Percentile] Per age and sex 2021-10-31 21:56:00 84.00 % [facility] Procedures Procedure Date / Time Performed Performing Clinicia n Source POCT URINALYSIS 2025-03-06 16:34:00 Darcy Arnold [facility] CBC WITH DIFF 2025-01-18 19:55:00 Darcy Arnold [facility] HEPATITIS B SURFACE ANTIGEN 2025-01-18 19:55:00 Darcy Arnold [facility] HCV ANTIBODY 2025-01-18 19:55:00 Darcy Arnold [facility] HB ABO GROUPING 2025-01-18 19:55:00 Darcy Arnold [facility] HIV 1/2 AG-AB WITH REFLEX 2025-01-18 19:55:00 Darcy Arnold [facility] PAP SMEAR-LIQUID BASED-CP 2025-01-18 19:55:00 Darcy Arnold [facility] SYPHILIS IGG/IGM 2025-01-18 19:55:00 Sarah Arnold [facility] POCT URINALYSIS W/O SPECIFIC GRAVITY 2025-01-18 18:56:00 Darcy Arnold [facility] POCT TEST 2025-01-18 18:55:00 Mike Arnold [facility] GARDASIL 9 (HPV 9V) VACCINE 2022-06-06 18:28:04 Lucas Rodriguez [facility] ASSIGNMENT OF BENEFITS 2022-06-06 18:00:17 Docto r Unassigned, [place] [facility] Encounters Start Date/Time End Date/Time Encounter Type Admission Type Attending Clinicians Care Facility Care Department Encounter ID Source 2021-10-01 08:29:21 Outpatient [facility] [id number] [facility] 2025-03-07 00:00:00 2025-03-07 16:32:19 Abstract Darcy Arnold [facility] OUTPATIENT CASE MANAGER [facility] [id number] 350.1.13.10 [id number] [id number] [facility] 2025-03-06 11:15:00 2025-03-06 12:04:14 Outpatient R DARCY ARNOLD [facility] [id number] [facility] 2025-03-06 11:15:00 2025-03-06 12:04:14 Routine Visit Darcy Arnold [facility] OUTPATIENT CASE MANAGER [facility] & CHILD [facility] [id number] 350.1.13.10 [id number] [id number] [facility] 2025-03-01 10:45:00 2025-03-01 11:14:59 Outpatient R DARCY ARNOLD [facility] [id number] [facility] 2025-03-01 10:45:00 2025-03-01 11:14:59 Routine Visit Darcy Arnold [facility] OUTPATIENT CASE MANAGER [facility] & CHILD [facility] [id number] 350.1.13.10 [id number] [id number] [facility] 2025-02-15 15:45:00 2025-02-15 16:18:53 Outpatient R LAUREEN QUINN [facility] [id number] [facility] 2025-02-06 10:15:00 2025-02-06 11:18:32 Outpatient P MARLEE DURHAM FARANAK [facility] [id number] [facility] 2025-02-01 12:30:00 2025-02-01 13:02:44 Outpatient R DARCY ARNOLD [facility] [id number] [facility] 2025-02-01 12:30:00 2025-02-01 13:02:44 Routine Visit Darcy Arnold [facility] OUTPATIENT CASE MANAGER [facility] CHILD [facility] 1..840.114 350.1.13.10 4.2.7.2.686 [id number] [facility] 2025-01-18 13:00:00 2025-01-18 14:00:35 Outpatient DARCY QUILES [facility] [id number] [facility] 2025-01-18 13:00:00 2025-01-18 14:00:35 Initial Visit Darcy Arnold Brenda A [facility] OUTPATIENT CASE MANAGER [facility] CHILD [facility] ..840.114 350.1.13.10 4.2.7.2.686 [id number] [facility] 2023-09-26 00:00:00 2023-09-26 00:00:00 Outpatient GC_GCBZW_Ka diyala_S PRIV PRIV [id number] [facility] 2023-09-25 00:00:00 2023-09-25 00:00:00 Outpatient GC_GCBZW_Ka diyala_S PRIV PRIV [id number] [facility] 2022-11-21 13:00:00 2022-11-21 13:00:00 Outpatient DARCY QUILES [facility] [id number] [facility] 2022-08-29 13:00:00 2022-08-29 13:18:31 Nurse Visit Visit, Chana Nurse Darcy Arnold [facility] OUTPATIENT CASE MANAGER [facility] CHILD [facility] ..840.114 350.1.13.10 4.2.7.2.686 [id number] [facility] 2022-08-29 13:00:00 2022-08-29 13:00:00 Outpatient DARCY QUILES [facility] [id number] [facility] 2022-06-06 13:00:00 2022-06-06 13:26:17 Nurse Visit Visit, SauravLucas Zambrano [facility] OUTPATIENT CASE MANAGER [facility] CHILD [facility] 1.2.840.114 350.1.13.10 4.2.7.2.686 [id number] [facility] 2022-06-06 13:00:00 2022-06-06 13:00:00 Outpatient LUCAS MODI [facility] [id number] [facility] 2022-06-06 00:00:00 2022-06-06 00:00:00 Orders Only Doctor Unassigned, [place] [facility] 1.840.114 350.1.13.10 4.2.7.2.686 [id number] [facility] 2022-03-14 13:00:00 2022-03-14 13:39:37 [facility] [id number] 350.1.13.10 4.2.7.2.686 [id number] [facility] 2022-03-14 13:00:00 2022-03-14 13:00:00 Outpatient LUCAS MODI [facility] [id number] [facility] 2021-12-20 13:00:00 2021-12-20 13:21:35 [facility] OUTPATIENT CASE MANAGER [facility] CHILD [facility] 1..840.114 350.1.13.10 4.2.7.2.686 [id number] [facility] 2021-12-20 13:00:00 2021-12-20 13:00:00 Outpatient LUCAS MODI [facility] [id number] [facility] 2021-12-12 14:30:00 2021-12-12 14:30:00 Outpatient Lay [facility] [id number] [facility] 2021-12-12 14:30:00 2021-12-12 14:30:00 Outpatient R LUCAS RODRIGUEZ [facility] [id number] [facility] 2021-10-31 15:35:21 2021-10-31 16:23:36 Office Visit Emily Turner [facility] OUTPATIENT CASE MANAGER [facility] CHILD [facility] 1.840.114 350.1.13.10 4.2.7.2.686 [id number] [facility] 2021-10-31 15:30:00 2021-10-31 16:23:36 Outpatient R EMILY TURNER [facility] [id number] [facility] [facility] 2021-10-31 16:05:35 2021-10-31 16:06:00 Nurse Visit Nurse, Juarez Rmchp Exp Cprit Obgyn Emily Turner [facility] OUTPATIENT CASE MANAGER [facility] MATERNAL & CHILD [facility] 1..840.114 350.1.13.10 4.2.7.2.686 [id number] 107 [id number] [facility] 2021-10-10 12:47:20 2021-10-10 13:22:28 Routine Visit Emily Turner [facility] OUTPATIENT CASE MANAGER [facility] & CHILD [facility] 1..840.114 350.1.13.10 4.2.7.2.686 [id number] 107 [id number] [facility] 2021-10-10 12:45:00 2021-10-10 13:22:28 Outpatient R EMILY TURNER [facility] [id number] [facility] 2021-10-10 12:45:00 2021-10-10 13:22:28 Outpatient R EMILY TURNER [facility] [id number] [facility] 2021-09-19 08:13:00 2021-09-21 16:46:00 Hospital Encounter Shannan Hernandez [facility] 1.840.114 350.1.13.10 4.2.7.2.686 [id number] [facility] 2021-09-19 14:36:00 2021-09-19 23:22:00 Anesthesia Event Vijaya Ivon Bernal, [facility] 1.2.840.114 350.1.13.10 4.2.7.2.686 [id number] [facility] 2021-09-17 15:40:48 2021-09-17 16:03:53 Routine Visit Emily Turner [facility] OUTPATIENT CASE MANAGER [facility] & CHILD [facility] 1..840.114 350.1.13.10 4.2.7.2.686 [id number] 107 [id number] [facility] 2021-09-17 15:45:00 2021-09-17 15:45:00 Outpatient R EMILY TURNER [facility] [id number] [facility] 2021-09-11 13:58:53 2021-09-11 14:30:09 Routine Visit Emily Turner [facility] OUTPATIENT CASE MANAGER [facility]NAL & CHILD [facility] 1..840.114 350.1.13.10 4.2.7.2.686 [id number] 107 [id number] [facility] 2021-09-11 14:15:00 2021-09-11 14:15:00 Outpatient R EMILY TURNER [facility] [id number] [facility] 2021-09-05 13:24:57 2021-09-05 13:55:40 Routine Visit Emily Turner [facility] OUTPATIENT CASE MANAGER [facility] & CHILD [facility] 1..840.114 350.1.13.10 4.2.7.2.686 [id number] 107 [id number] [facility] 2021-09-05 13:30:00 2021-09-05 13:30:00 Outpatient R EMILY TURNER [facility] [id number] [facility] 2021-08-29 13:20:54 2021-08-29 13:51:43 Routine Visit Emily Turner [facility] OUTPATIENT CASE MANAGER [facility] & CHILD [facility] 1..840.114 350.1.13.10 4.2.7.2.686 [id number] [facility] 2021-08-29 13:30:00 2021-08-29 13:30:00 Outpatient R EMILY TURNER [facility] [id number] [facility] 2021-08-21 12:47:20 2021-08-21 15:07:20 Routine Visit Darcy Arnold [facility] OUTPATIENT CASE MANAGER [facility] & CHILD [facility] 1..840.114 350.1.13.10 4.2.7.2.686 [id number] 107 [id number] [facility] 2021-08-21 12:45:00 2021-08-21 12:45:00 Outpatient R DARCY ARNOLD [facility] [id number] [facility] 2021-08-07 12:58:15 2021-08-07 13:23:46 Routine Visit Darcy Arnold [facility] OUTPATIENT CASE MANAGER [facility] & CHILD [facility] ..840.114 350.1.13.10 4.2.7.2.686 [id number] 107 [id number] [facility] 2021-08-07 13:00:00 2021-08-07 13:00:00 Outpatient R DARCY ARNOLD [facility] [id number] [facility] 2021-07-24 14:26:06 2021-07-24 14:41:06 Routine Visit Darcy Arnold [facility] OUTPATIENT CASE MANAGER [facility] & CHILD [facility] 1..840.114 350.1.13.10 4.2.7.2.686 [id number] 107 [id number] [facility] 2021-07-24 14:30:00 2021-07-24 14:30:00 Outpatient R DARCY ARNOLD [facility] [id number] [facility] 2021-07-16 12:46:03 2021-07-16 12:52:30 Farmworker Fruit Visit Lab, Ang-Rmchp Darcy Arnold [facility] OUTPATIENT CASE MANAGER [facility] & CHILD [facility] ..840.114 350.1.13.10 4.2.7.2.686 [id number] [facility] 2021-07-16 12:45:00 2021-07-16 12:45:00 Outpatient R [facility] [id number] [facility] 2021-07-11 10:51:54 2021-07-11 11:36:54 Farmworker Fruit [facility] ..840.114 350.1.13.10 4.2.7.2.686 [id number] [facility] 2021-07-11 11:00:00 2021-07-11 11:00:00 Outpatient P [facility] [id number] [facility] 2021-07-10 13:56:09 2021-07-10 15:27:15 Routine Visit Darcy Arnold [facility] OUTPATIENT CASE MANAGER [facility] & CHILD [facility] .840.114 350.1.13.10 4.2.7.2.686 [id number] [facility] 2021-07-10 14:00:00 2021-07-10 14:00:00 Outpatient R DARCY ARNOLD [facility] [id number] [facility] 2021-06-21 00:00:00 2021-06-21 00:00:00 Abstract Darcy Arnold [facility] OUTPATIENT CASE MANAGER [facility] CHILD [facility] ..840.114 350.1.13.10 4.2.7.2.686 [id number] 107 [id number] [facility] 2021-06-20 13:54:40 2021-06-20 15:20:43 Farmworker Fruit Visit Ultrasound, Yogesh Patrick [facility] 1.2.840.114 350.1.13.10 4.2.7.2.686 [id number] [facility] 2021-06-20 14:00:00 2021-06-20 14:00:00 Outpatient R [facility] [id number] [facility] 2021-06-20 00:00:00 2021-06-20 00:00:00 Telephone Darcy Arnold [facility] OUTPATIENT CASE MANAGER [facility] CHILD [facility] 1.2.840.114 350.1.13.10 4.2.7.2.686 [id number] [facility] 2021-06-19 00:00:00 2021-06-19 00:00:00 Telephone Darcy Arnold [facility] OUTPATIENT CASE MANAGER [facility] CHILD [facility] 1.2.840.114 350.1.13.10 4.2.7.2.686 [id number] [facility] 2021-06-14 00:00:00 2021-06-14 00:00:00 Telephone Darcy Arnold [facility] OUTPATIENT CASE MANAGER [facility] CHILD [facility] 1.2.840.114 350.1.13.10 4.2.7.2.686 [id number] [facility] 2021-06-14 00:00:00 2021-06-14 00:00:00 Telephone Darcy Arnold [facility] OUTPATIENT CASE MANAGER [facility] CHILD [facility] 1.2.840.114 350.1.13.10 4.2.7.2.686 [id number] [facility] 2021-06-12 13:12:41 2021-06-12 14:09:23 Routine Visit Darcy Arnold [facility] OUTPATIENT CASE MANAGER [facility] 1..840.114 350.1.13.10 4.2.7.2.686 [id number] 107 [id number] [facility] 2021-06-12 13:00:00 2021-06-12 13:00:00 Outpatient R DARCY ARNOLD [facility] [id number] [facility] 2021-05-16 14:42:37 2021-05-16 15:50:31 Initial Visit Darcy Arnold [facility] OUTPATIENT CASE MANAGER [facility] CHILD [facility] 1..840.114 350.1.13.10 4.2.7.2.686 [id number] [facility] 2021-05-16 14:00:00 2021-05-16 14:00:00 Outpatient R DARCY ARNOLD [facility] [id number] [facility] 2021-05-16 00:00:00 2021-05-16 00:00:00 Orders Only Doctor Unassigned, [place] [facility] 1..840.114 350.1.13.10 4.2.7.2.686 [id number] [facility] 2021-03-08 09:30:00 2021-03-08 09:30:00 Outpatient R [facility] [id number] [facility] 2020-02-14 18:19:04 2020-02-14 21:20:00 Emergency [facility] 1..840.114 350.1.13.10 4.2.7.2.686 [id number] [facility] 2020-02-14 18:19:04 2020-02-14 18:19:04 Emergency X [facility] ERT [id number] [facility] Results Test Description Test Time Test Comments Results Result Co mments Source [facility] SYPHILIS [id number]/[id number] 14:54:45* Test Item Value Reference Range Interpretation Comme nts Syphilis IgG/IgM (test code = 13953-8) Nonreactive Nonreactive Syphilis Serology Interpretation (test code = 12283-6) No serologic evidence of syphilis. If recent exposure is suspected, retest in 2 to 4 weeks. ALVINO (test code = ALVINO) ? [facility] [id number] 13:35:54* Test Item Value Reference Range Interpretation Comme nts HCV Ab (test code = 95773-5) Negative HCV Semi-Quantitative (test code = 54782-3) 0.01 [facility] SURFACE [id number] 13:18:29 * Test Item Value Reference Range Interpretation Comme [facility] HBsAg Semi-Quantitative (moreno t code = 5195-3) 0.10 Negative [facility]2 AG-AB WITH [id number] 11:36:59* Test Item Value Reference Range Interpretation Comme [facility] HIV Semi-quantitative (test code = 17099-6) 0.09 Negative ALVINO (test code = ALVINO) Non-reactive for HIV-1 antigen and HIV-1/HIV-2 antibodies. ?No laboratory evidence of HIV infection. ?Repeat in 2-4 weeks if acute HIV infection is suspected. [facility] WITH [id number] 06:54:49* Test Item Value Reference Range Interpretation Comme [facility] WBC (test code = 6690-2) 10.41 4.30-11.10 RBC (test code = 789-8) 4.16 3.93-5.25 HGB (test code = 718-7) 12.6 g/dL 11.6-15.0 HCT (test code = 4544-3) 36.7 % 35.7-45.2 MCV (test code = 787-2) 88.2 fL 80.6-95.5 MCH (test code = 785-6) 30.3 pg 25.9-32.8 MCHC (test code = 786-4) 34.3 g/dL 31.6-35.1 RDW-SD (test code = 08080-6) 40.0 fL 39.0-49.9 RDW-CV (test code = 788-0) 12.5 % 12.0-15.5 PLT (test code = 777-3) 363 166-358 H MPV (test code = 47540-4) 9.9 fL 9.5-12.9 NRBC/100 WBC (test code = 8029413567) 0.0 0.0-10.0 NRBC x10^3 (test code = 1206854107) See_Comment [Automated messa ge] The system which generated this result transmitted reference range: 10*3/?L. The reference range was not used to interpret this result as normal/abnormal. GRAN MAT (NEUT) % (test code = 770-8) 72.7 % IMM GRAN % (test code = 7041507647) 0.60 % LYMPH % (test code = 736-9) 18.0 % MONO % (test code = 5905-5) 7.9 % EOS % (test code = 713-8) 0.7 % BASO % (test code = 706-2) 0.1 % GRAN MAT x10^3(ANC) (test code = 7772093340) 7.58 10*3/uL 1.88-7.09 H IMM GRAN x10^3 (test code = 1531206353) 0.06 10*3/uL 0.00-0.06 LYMPH x10^3 (test code = 731-0) 1.87 10*3/uL 1.32-3.29 MONO x10^3 (test code = 742-7) 0.82 10*3/uL 0.33-0.92 EOS x10^3 (test code = 711-2) 0.07 10*3/uL 0.03-0.39 BASO x10^3 (test code = 704-7) 0.01-0.07 Lab Interpretation (test code = 99410-9) Abnormal [facility], BLOOD [id number] 05:01:00 * Test Item Value Reference Range Interpretation Comme nts ABO & RH (test code = 20) O POSITIVE IAT (test code = 1185) Negative [facility] [id number] 18:56:00* Test Item Value Reference Range Interpretation Comme nts POCT PREG (test code = 1605) Positive On board controls acceptable with C Line (test code = 3574) Yes POCT PREG LOT # (test code = 3575) POCT PREG TEST DATE ( test code = 3576) [facility] Urinalysis w/o Specific [id number] 18:56:00* Test Item Value Reference Range Interpretation Comme nts POCT PH U (test code = 3254) 6 mg/dl 5-8 POCT U LEUK EST (test code = 3263) 1+ Negative - Negative POCT U NIT (test code = 3262) Neg Negative - Negati ve POCT U PROT (test code = 3259) Trace Negative - Negat jack POCT U GLU (test code = 3256) Nml Negative - Negati ve POCT U KETONE (test code = 3258) Neg Negative - Neg ative POCT U BLD (test code = 3257) Neg Negative - Negati ve [facility]
[2025-03-08 14:19] LABS: Absolute Basophils 0.1 K/uL (0-0.5); Absolute Lymphocytes (CBC) 0.8 K/uL (0.7-4.9); Absolute Monocytes 0.6 K/uL (0.1-1.3); Absolute Neutrophil 15.1 K/uL (1.8-8.0); Basophils % 0.3 % (0-1.3); Eosinophils % 0.1 % (0-4.4); Hematocrit 39.1 % (36.0-45.0); Hemoglobin 13.9 g/dL (12.0-15.0); Lymphocytes % 4.9 % (15.3-44.8); MCH 30.7 pg (27.0-35.0); MCHC 35.5 g/dL (32.0-36.0); MCV 86.6 fL (80-100); MPV 7.8 fL (7.6-11.3); Monocytes % 3.8 % (3.3-12.3); Neutrophils % 90.9 % (41.7-73.7); Nucleated Red Blood Cells % 0.1 % (0-0); Platelets 353 thou/uL (152-406); RBC Red Blood Cell Count 4.51 M/uL (3.86-4.86)
[2025-03-08] MEDS ORDERED: NA CHLORIDE 0.9% 1,000 ML ONE (14:25)
[2025-03-08] MEDS ORDERED: ONDANSETRON 4 MG/2 ML VIAL ONE (14:25)
[2025-03-08 15:14] LABS: Specific Gravity 1.026 (1.005-1.030)
[2025-03-08 15:15] LABS: Specific Gravity 1.026 (1.005-1.030); Sqamous Epithelial <5 /HPF (None Seen); Urine Bacteria None Seen /HPF (<20); Urine Bilirubin NEGATIVE (Negative); Urine Blood Negative (Negative); Urine Clarity Turbid (Clear); Urine Color Yellow (Yellow); Urine Culture Reflex Order NOT NEEDED; Urine Glucose NEGATIVE (Negative); Urine Ketones 4+ (Over) (Negative); Urine Microscopic Reflex YN ORDER UMIC; Urine Mucus 4+ /HPF (None Seen); Urine Nitrite NEGATIVE (Negative); Urine Protein 1+ (Negative); Urine Urobilinogen Normal (Normal); Urine WBC <5 /HPF (<5); Urine Yeast (Budding) Trace /HPF (None Seen); Urine pH 6.5 (5.0-7.0)
--- NOTE | 2025-03-08 16:01 | RAD REPORT ---
EXAMINATION: OB Limited COMPARISON: None. HISTORY: [facility] MAIN decreased movement Bed: TECHNIQUE: Real-time ultrasound was performed through the pelvis through a transabdominal approach. FINDINGS: There is a single living intrauterine . Fetus in cephalic position. Placenta is forming anteriorly. Cervix appears closed, measuring 3.8 cm i n length. Ovaries were not visualized. There is no free fluid in the cul-de-sac. Measurements and Calculations: Femur length 4.0 CM, consistent with a sonographic age of 34 weeks, 6 days. The patient's LMP dates a re not stated. heart rate: 151 BPM. PHYLLIS: 10.61 cm, within normal range for gestational age. IMPRESSION: Single living intrauterine , with a composite sonographic age of 34 weeks, 6 days, by ultras ound dating. Fetus in cephalic position. PHYLLIS within normal range. No abnormalities on this exam
--- NOTE | 2025-03-08 16:18 | ER ---
Nurse's Notes [facility] Name: Katia Shi Age: 24 yrs Sex: Female : 2000 Arrival Date: 03/08/2025 Time: 12:58 Bed DX1 Private MD: Diagnosis: Vomiting;Decreased movements, third trimester Presentation: 03/08 13:49 Chief complaint: Patient states: vomiting since 3 am, decreased movement since iw then, but now she feels the baby moving. Coronavirus screen: At this time, the client does not indicate any symptoms associated with coronavirus-19. Ebola Screen: No symptoms or risks identified at this time. Initial Sepsis Screen: Does the patient meet any 2 criteria? No. Patient's initial sepsis screen is negative. Does the patient have a suspected source of infection? No. Patient's initial sepsis screen is negative. Risk Assessment: Do you want to hurt yourself or someone else? Patient reports no desire to harm self or others. 13:49 Method Of Arrival: Ambulatory iw 13:49 Acuity: JAMES 3 iw 13:51 Onset of symptoms was March 08, 2025. 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 Patient and/or family ll1 updated on plan of care and expected duration. Pain level reassessed. 15:04 Reassessment: No changes from previously documented assessment. Patient and/or family ll1 updated on plan of care and expected duration. Pain level reassessed. Patient is alert, oriented x 3, equal unlabored respirations, skin warm/dry/pink. 16:56 Reassessment: Patient appears in no apparent distress at this time. Patient and/or iw family updated on plan of care and expected duration. Pain level reassessed. Patient is alert, oriented x 3, equal unlabored respirations, skin warm/dry/pink. report called to [place] at [facility] L\T\D triage. Vital Signs: 13:49 BP 150 / 91; Pulse 92; Resp 16; Pulse Ox 100% on R/A; iw 15:03 BP 120 / 77; Pulse 86; Resp 17; Temp 97.6; Pulse Ox 100% ; ll1 ED Course: 13:01 Patient arrived in ED. mr 13:04 Rochelle Luz FNP-C [facility] kb 13:04 Gabino Lozoya DO is Attending Physician. kb 13:34 US OB Limited In Process Unspecified. EDMS 13:50 Triage completed. iw 13:51 Arm band placed on. iw 14:12 Abo/rh Typing Sent. cc6 14:12 Basic Metabolic Panel Sent. cc6 14:12 CBC with Diff Sent. cc6 15:00 Urinalysis w/ reflexes Sent. ll1 15:12 Test, Urine Sent. cc6 15:12 Urinalysis w/ reflexes Sent. cc6 16:51 Karolina Velez, RN is Primary Nurse. iw Administered Medications: 14:28 Drug: NS 0.9% IV 1000 ml IV at 1000 ml once; to be given as a bolus over 60 minutes ll1 Route: IV; Rate: 1000 ml; Site: right antecubital; 14:29 Drug: Ondansetron IVP 4 mg IVP once; over 2 minutes Route: IVP; Site: right antecubital;ll1 15:04 Follow up: Response: No adverse reaction; Nausea is decreased ll1 Outcome: 16:18 ER care complete, transfer ordered by MD. kb 18:40 Patient left the ED. iw Signatures: Dispatcher [employer] EDMS Rochelle uLz FNP-C CARBURETOR REBUILDER-Flavia TyreseSallie, Reg Reg mr Karolina Velez, RN RN iw Anne Bridges RN RN 1 Kelle Delaney cc6 Corrections: (The following items were deleted from the chart) 15:01 14:12 Test, Urine+UC.LAB.BRZ drawn and sent. cc6 EDMS
--- NOTE | 2025-03-08 16:18 | EDPHYS ---
Physician Documentation [facility] Name: Katia Shi Age: 24 yrs Sex: Female : 2000 Arrival Date: 03/08/2025 Time: 12:58 Bed DX1 Private MD: ED Physician Gabino Lozoya HPI: 03/08 13:53 This 24 yrs old Female presents to ER via Ambulatory with complaints of 36wks kb ,decreased movement, Vomiting. 13:53 Pt is a 24 year old female who presents for vomiting and decreased movement since kb 0300. States she hadn't felt the baby move since 299, but went to [place] prior to triage and they were able to get him to move there. States "I think I am just dehydrated." LMP May 2024. OB in [place], supposed to deliver at [facility], BIBI 04/02/25. A1. History of vaginal delivery on 09/19/21.. 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 Head/Face: Normocephalic, atraumatic. ENT: Moist Mucous membranes Cardiovascular: Regular rate Respiratory: Respirations even and unlabored. No increased work of breathing. Talking in full sentences Abdomen/GI: Soft, non-tender. No distention Skin: Warm, dry with normal turgor. Normal color. MS/ Extremity: Pulses equal, no cyanosis. Neurovascular intact. Full, normal range of motion. Neuro: Awake and alert, GCS 15, oriented to person, place, time, and situation. 13:56 Abdomen/GI: Inspection: gravid appearance, is noted, Vital Signs: 13:49 BP 150 / 91; Pulse 92; Resp 16; Pulse Ox 100% on R/A; iw 15:03 BP 120 / 77; Pulse 86; Resp 17; Temp 97.6; Pulse Ox 100% ; ll1 MDM: 13:05 Medical Screening Exam initiated kb 13:56 Data reviewed: vital signs, nurses notes. kb 16:16 Differential diagnosis: dehydration, abnormal electrolytes, complication. kb Consideration of Admission/Observation Escalation of care including admission/observation considered. pt will be transferred for OB. Historians other than the Patient: Friend: friend. Counseling: I had a detailed discussion with the patient and/or guardian regarding the historical points, exam findings, and any diagnostic results supporting the discharge/admit diagnosis, lab results, radiology results, the need to transfer to another facility, [facility] does not immediately have the required specialist. 18:40 Management of patient was discussed with the following: Dr Scales accepted pt for transfer kb to [facility] without conference. 03/08 13:05 Order name: Abo/rh Typing; Complete Time: 14:57 kb 03/08 13:05 Order name: Basic Metabolic Panel; Complete Time: 14:32 kb 03/08 13:05 Order name: CBC with Diff; Complete Time: 18:40 kb 03/08 13:05 Order name: Test, Urine; Complete Time: 15:15 kb 03/08 13:05 Order name: Urinalysis w/ reflexes; Complete Time: 15:20 kb 03/08 18:32 Order name: Manual Differential; Complete Time: 18:40 EDMS 03/08 13:05 Order name: US OB Limited; Complete Time: 16:03 kb 03/08 13:05 Order name: IV Saline Lock; Complete Time: 14:11 kb 03/08 13:05 Order name: Labs collected and sent; Complete Time: 14:11 kb 03/08 13:05 Order name: NPO; Complete Time: 14:29 kb 03/08 14:53 Order name: Vital Signs; Complete Time: 15:04 kb Administered Medications: 14:28 Drug: NS 0.9% IV 1000 ml IV at 1000 ml once; to be given as a bolus over 60 minutes ll1 Route: IV; Rate: 1000 ml; Site: right antecubital; 14:29 Drug: Ondansetron IVP 4 mg IVP once; over 2 minutes Route: IVP; Site: right antecubital;ll1 15:04 Follow up: Response: No adverse reaction; Nausea is decreased ll1 Disposition: 14:52 I was immediately available on-site in the Emergency Department for consultation in the [facility] care of the patient. Disposition Summary: 03/08/25 16:18 Transfer Ordered Notes: Transfer Location: [facility] kb Reason: Higher level of care kb Condition: Stable kb Problem: new kb Symptoms: are unchanged kb Accepting Physician: Dr Scales(03/08/25 18:40) guera Diagnosis - Vomiting kb - Decreased movements, third trimester kb Forms: - Medication Reconciliation Form kb - SBAR form kb Signatures: Dispatcher [employer] EDMS Rochelle Luz, INNOVATION ANALYST-C INNOVATION ANALYST-Karolina Mo RN RN iw Anne Bridges RN RN ll1 Gabino Lozoya DO DO ms3 Corrections: (The following items were deleted from the chart) 15:01 13:06 Test, Urine+UC.LAB.BRZ ordered. EDMS EDMS 18:40 16:18 dr brown kb 18:40 18:40 Dr Scales kb iw
[2025-03-08 18:32] LABS: Band Neutrophils 2 % (0-1); Blood Morphology Comment NOT SEEN (NOT SEEN); Differential Total Cells Count 100; Lymphocytes 3 % (15-42); Monocytes 3 % (0-10); Platelet Estimate ADEQ; Segmented Neutrophils 92 % (40-80)
[2025-03-08 18:57] VITALS: O2SAT 100
[2025-03-08 18:58] VITALS: BP 120/77; TEMP 97.6
== END 2025-03-08 18:40 | disposition short-term general hospital (02) ==
LOC: ER 12:58
DX: O36.8130 Decreased fetal movements, third trimester, not applicable or unspecified (principal); O21.9 Vomiting of pregnancy, unspecified; Z3A.36 36 weeks gestation of pregnancy
CPT/HCPCS: 85025; 81001; 80048; 36415; 86900; 81025; 86901; 76815; J2405; J7030